=== PATIENT | female | born 1990 | race American Indian/Alaskan Native ===

== ENCOUNTER 2020-11-14 11:42 | Emergency (ER) | payer BC ==
[2020-11-14] MEDS ORDERED: METOCLOPRAMIDE 10 MG/2 ML INJ IV ONE (12:57)
[2020-11-14] MEDS ORDERED: KETOROLAC 30 MG/1 ML INJ IV ONE (12:57)
[2020-11-14] MEDS ORDERED: SODIUM CHLORIDE 0.9% 1000 ML 1,000 ML IV ONE (12:57)
[2020-11-14] MEDS ORDERED: diphenhydrAMINE 50 MG/ML VIAL IV ONE (12:57)
--- NOTE | 2020-11-14 12:59 | Emergency Department Report ---
ED Headache HPI - General Chief Complaint: Headache Stated Complaint: HEAD PAIN Time Seen by Provider: 11/14/20 12:31 Source: patient Exam Limitations: no limitations - History of Present Illness Initial Comments: 30-year-old female with no significant past medical history presents to the ER today complaint of a right frontal headache. Patient states that she has been having this headache for past 3 weeks. She describes as an intermittent achy pain that is nonradiating. She states that seem to be worse with noise. She did take Aleve once a day every other day but it did not help her symptoms. She reports associated intermittent lightheadedness and dizziness. She denies any head injury. She denies any photophobia, nausea, vomiting, neck pain, vision changes, speech changes, URI symptoms or cough, fever, chills, chest pain, shortness of breath or any other symptoms at this time. She denies any history of headaches. Last menstrual cycle was October 19, 2020. Timing/Duration: other (3-week) Quality: achy Head Injury Location: frontal (Right frontal) Allergies/Adverse Reactions: Allergies No Known Allergies Allergy (Unverified 11/14/20 11:49) Home Medications: Ambulatory Orders Amoxicillin [Trimox CAP] 500 mg PO Q8H #30 capsule 11/14/20 Butalb/Acetaminophen/Caffeine [Fioricet 50-300-40 mg CAP] 1 cap PO Q6HR PRN #12 cap 11/14/20 Cetirizine HCl [Zyrtec 10mg tab] 10 mg PO DAILY #30 tablet 11/14/20 Fluticasone [Flonase] 2 spray NS QDAY #1 bottle 11/14/20 ED Review of Systems ROS: Stated complaint: HEAD PAIN Other details as noted in HPI Comment: All other systems reviewed and negative Constitutional: denies: chills, fever Eyes: denies: eye pain, eye discharge, vision change ENT: denies: ear pain, throat pain Respiratory: denies: cough, shortness of breath, wheezing Cardiovascular: denies: chest pain, palpitations Endocrine: no symptoms reported Gastrointestinal: denies: abdominal pain, nausea, vomiting, diarrhea, constipation, hematemesis Genitourinary: denies: urgency, dysuria, discharge Musculoskeletal: denies: back pain, joint swelling, arthralgia Neurological: headache, other (intermittent lightheaded and dizziness) Psychiatric: denies: anxiety, depression Hematological/Lymphatic: denies: easy bleeding, easy bruising ED Past Medical Hx - Past Medical History Previous Medical History?: No - Surgical History Past Surgical History?: No - Social History Smoking Status: Never Smoker Substance Use Type: None - Medications Home Medications: Home Medications Medication Instructions Recorded Confirmed Last Taken Type Amoxicillin [Trimox CAP] 500 mg PO Q8H #30 capsule 11/14/20 Unknown Rx Butalb/Acetaminophen/Caffeine 1 cap PO Q6HR PRN #12 cap 11/14/20 Unknown Rx [Fioricet 50-300-40 mg CAP] Cetirizine HCl [Zyrtec 10mg tab] 10 mg PO DAILY #30 tablet 11/14/20 Unknown Rx Fluticasone [Flonase] 2 spray NS QDAY #1 bottle 11/14/20 Unknown Rx ED Physical Exam - General Limitations: No Limitations General appearance: alert, in no apparent distress - Head Head exam: Present: atraumatic, normocephalic, normal inspection - Eye Eye exam: Present: normal appearance, PERRL, EOMI Pupils: Present: normal accommodation - ENT ENT exam: Present: normal exam, mucous membranes moist, other (+TTP left maxillary and frontal sinus) - Expanded ENT Exam Expanded TM/Canal exam: Effusion: Right TM, Left TM - Neck Neck exam: Present: normal inspection, full ROM. Absent: meningismus - Respiratory Respiratory exam: Present: normal lung sounds bilaterally. Absent: respiratory distress - Cardiovascular Cardiovascular Exam: Present: regular rate, normal rhythm, normal heart sounds - GI/Abdominal GI/Abdominal exam: Present: soft. Absent: distended, tenderness - Neurological Exam Neurological exam: Present: alert, oriented X3, CN II-XII intact, normal gait. Absent: motor sensory deficit - Psychiatric Psychiatric exam: Present: normal affect, normal mood - Skin Skin exam: Present: intact ED Course Vital Signs 11/14/20 11/14/20 11/14/20 11:51 13:32 13:39 Temperature 98.4 F Pulse Rate 75 Respiratory 18 16 16 Rate Blood Pressure 134/85 Blood Pressure [Left] O2 Sat by Pulse 100 Oximetry 11/14/20 11/14/20 14:02 15:01 Temperature Pulse Rate 78 Respiratory 16 16 Rate Blood Pressure Blood Pressure 132/86 [Left] O2 Sat by Pulse 100 Oximetry - Reevaluation(s) Reevaluation #1: Patient states that she no longer have headache after meds. Urinalysis reviewed and unremarkable. 11/14/20 14:32 ED Medical Decision Making - Medical Decision Making The patient presented to the emergency department with a headache. The patient is now resting comfortably and feels better, is alert, talkative, interactive and in no distress. The patient appears well and is able to tolerate p.o. fluids. The repeat examination is unremarkable and benign. The patient is neurologically intact, has a normal mental status, and is ambulatory in the ER. The history, exam, diagnostic testing and the patient's current condition does not suggest meningitis, stroke, sepsis, subarachnoid hemorrhage, intracranial bleeding, encephalitis, temporal arteritis or other significant pathology to warrant further testing, continued ED treatment, admission, neurological consultation or other specialist evaluation at this point. The vital signs have been stable. The patient's condition is stable and appropriate for discharge. The patient will pursue further outpatient evaluation with the primary care physician or other designated or consulting physician as indicated in the discharge instruction. Critical care attestation.: If time is entered above; I have spent that time in minutes in the direct care of this critically ill patient, excluding procedure time. ED Disposition Clinical Impression: Headache, Sinusitis, Eustachian tube dysfunction Disposition: - TO HOME OR SELFCARE Is pt being admited?: No Does the pt Need Aspirin: No Condition: Stable Instructions: General Headache Without Cause, Sinus Headache, [id number] Additional Instructions: Take the Fioricet as prescribed to help with the headache. Also take the Flonase, amoxicillin and the Claritin to help with possible sinus infection. Follow up with your PCP in next few days. Return to ED if your symptoms worsens or changes in any way. Prescriptions: Butalb/Acetaminophen/Caffeine [Fioricet 50-300-40 mg CAP] 1 cap PO Q6HR PRN #12 cap PRN Reason: Headache Fluticasone [Flonase] 2 spray NS QDAY #1 bottle Amoxicillin [Trimox CAP] 500 mg PO Q8H #30 capsule Cetirizine HCl [Zyrtec 10mg tab] 10 mg PO DAILY #30 tablet Referrals: SVITLANA MANZO MD [Primary Care Provider] - 3-5 Days FELIX KHAN MD [Staff Physician] - 3-5 Days Forms: Work/School Release Form(ED) Time of Disposition: 14:38
[2020-11-14 14:00] LABS: Bilirubin,Urine NEG (Negative); Blood,Urine NEG (Negative); Color,Urine Yellow (Yellow); Mucus,Urine FEW /HPF; Protein,Urine <15 mg/dL mg/dL (Negative); Urobilinogen,Urine < 2.0 mg/dL (<2.0)
[2020-11-14 14:07] LABS: HCG Qualitative,Urine Negative (Negative)
[2020-11-14 16:02] VITALS: BP 132/86
== END 2020-11-14 15:15 | disposition home or self-care (01) ==
LOC: ED 11:42
DX: J32.9 Chronic sinusitis, unspecified (principal); K31.89 Other diseases of stomach and duodenum; Z79.2 Long term (current) use of antibiotics; Z79.899 Other long term (current) drug therapy
CPT/HCPCS: 81001; 81025; 96361; 96374; 96375; 99283; J1200; J1885; J2765; J7030